=== PATIENT | male | born 1935 | race Caucasian/White ===

== ENCOUNTER 2016-04-18 11:25 | Inpatient (IN) | payer MEDICARE, OTHER ==
[~2016-04-18] VITALS: Ht 188 cm; Wt 115.4 kg
[2016-04-18 12:00] VITALS: BP_SYST 118; BP_SYST 120; RESP 18; TEMP 97.7; Ht 188 cm; Wt 115.4 kg
[2016-04-18] MEDS: LOTREL PO SCH (12:35)
[2016-04-18] MEDS: DIGOXIN 0.125 MG TAB PO SCH (12:35)
[2016-04-18] MEDS: Carvedilol 6.25 MG TAB PO SCH ×2 (12:36→21:00)
[2016-04-18] MEDS: PANTOPRAZOLE 40 MG TAB PO SCH (12:37)
[2016-04-18] MEDS ORDERED: PHARMACY TO DOSE VANCOMYCIN IV SCH (12:40)
[2016-04-18] MEDS ORDERED: **NOTE TO NURSE XX SCH (12:44)
[2016-04-18] MEDS: LEVOFLOXACIN 500 MG/100 ML 100 ML IV SCH (13:25)
[2016-04-18] MEDS ORDERED: VANCOMYCIN 2,250 MG in SODIUM CHLORIDE 0.9% 500 ML IV ONE (15:00)
[2016-04-18 15:43] VITALS: BP_SYST 120; RESP 18; TEMP 98.5
[2016-04-18 19:57] VITALS: BP_SYST 129; RESP 20; TEMP 98
[2016-04-18] MEDS: MONTELUKAST 10 MG TAB PO SCH (21:00)
[2016-04-18] MEDS ORDERED: SALINE FLUSH 5 ML FLUSH PRN (21:05)
[2016-04-19] VITALS (9 sets, daily range): BP systolic 110–143; RESP 16–20; TEMP 97.6–98.7
[2016-04-19] MEDS: VANCOMYCIN 1,500 MG in SODIUM CHLORIDE 0.9% 250 ML IV SCH ×2 (02:55→15:31)
[2016-04-19] MEDS ORDERED: SODIUM CHLORIDE 0.9% FLUSH BAG 500 ML IV SCH (06:00)
[2016-04-19] MEDS: PANTOPRAZOLE 40 MG TAB PO SCH (06:45)
[2016-04-19] MEDS ORDERED: SALINE FLUSH 5 ML FLUSH SCH (09:00)
[2016-04-19] MEDS: LEVOFLOXACIN 500 MG/100 ML 100 ML IV SCH (09:33)
[2016-04-19] MEDS: Carvedilol 6.25 MG TAB PO SCH ×2 (09:34→21:25)
[2016-04-19] MEDS: LOTREL PO SCH (09:34)
[2016-04-19] MEDS: DIGOXIN 0.125 MG TAB PO SCH (13:24)
[2016-04-19] MEDS: TRIAMCIN TOPICAL SCH ×2 (13:25→21:26)
[2016-04-19] MEDS ORDERED: SALINE FLUSH 10 ML FLUSH PRN (14:30)
[2016-04-19] MEDS: MONTELUKAST 10 MG TAB PO SCH (21:25)
[2016-04-19] MEDS: SALINE FLUSH 10 ML FLUSH SCH (21:25)
[2016-04-20] VITALS (9 sets, daily range): BP systolic 131–149; RESP 16–20; TEMP 97.3–98
[2016-04-20] MEDS: VANCOMYCIN 1,500 MG in SODIUM CHLORIDE 0.9% 250 ML IV SCH ×2 (02:32→15:55)
[2016-04-20] MEDS: SODIUM CHLORIDE 0.9% FLUSH BAG 500 ML IV SCH (06:01)
[2016-04-20] MEDS: PANTOPRAZOLE 40 MG TAB PO SCH (06:06)
[2016-04-20] MEDS ORDERED: BISACODYL EC 5 MG TAB PO ONE (08:30)
[2016-04-20] MEDS: POLYETHYLENE GLYCOL 17 GM PACKET PO SCH (09:15)
[2016-04-20] MEDS: DOCUSATE SOD 100 MG CAP PO SCH ×2 (09:15→21:27)
[2016-04-20] MEDS: LEVOFLOXACIN 500 MG/100 ML 100 ML IV SCH (09:15)
[2016-04-20] MEDS: SALINE FLUSH 10 ML FLUSH SCH ×2 (09:16→21:26)
[2016-04-20] MEDS: TRIAMCIN TOPICAL SCH ×2 (09:16→21:27)
[2016-04-20] MEDS: LOTREL PO SCH (09:20)
[2016-04-20] MEDS: Carvedilol 6.25 MG TAB PO SCH ×2 (09:20→21:26)
[2016-04-20] MEDS: DIGOXIN 0.125 MG TAB PO SCH (11:45)
[2016-04-20] MEDS: MONTELUKAST 10 MG TAB PO SCH (21:26)
[2016-04-21] VITALS (7 sets, daily range): BP systolic 125–146; RESP 16–20; TEMP 97.7–98.4
[2016-04-21] MEDS: VANCOMYCIN 1,500 MG in SODIUM CHLORIDE 0.9% 250 ML IV SCH (03:48)
[2016-04-21] MEDS: SODIUM CHLORIDE 0.9% FLUSH BAG 500 ML IV SCH (03:49)
[2016-04-21] MEDS: PANTOPRAZOLE 40 MG TAB PO SCH (06:35)
[2016-04-21] MEDS: POLYETHYLENE GLYCOL 17 GM PACKET PO SCH (08:34)
[2016-04-21] MEDS: SALINE FLUSH 10 ML FLUSH SCH (08:35)
[2016-04-21] MEDS: LOTREL PO SCH (08:35)
[2016-04-21] MEDS: DOCUSATE SOD 100 MG CAP PO SCH (08:35)
[2016-04-21] MEDS: Carvedilol 6.25 MG TAB PO SCH (08:35)
[2016-04-21] MEDS ORDERED: LEVOFLOXACIN 500 MG TAB PO SCH (09:00)
[2016-04-21] MEDS: DIGOXIN 0.125 MG TAB PO SCH (11:41)
== END 2016-04-21 14:49 | disposition home or self-care (01) | DRG 603 ==
LOC: 3NT 11:52 → ENPENDDIS 11:52 → 3NT 04-19 15:27
PROVIDERS: ADMIT Internal Medicine; ATTEND Internal Medicine
CPT/HCPCS: 80048; 80053; 80162; 80202; 85025; 85610; 87040